=== PATIENT | male | born 1995 | race American Indian/Alaskan Native ===

== ENCOUNTER 2017-09-07 17:35 | Emergency (ER) | payer SELFPAY ==
[2017-09-07 20:30] LABS: Basophils % (Auto) 0.5 % (0.0-1.8); Hematocrit 45.8 % (35.5-45.6); Hemoglobin 15.5 gm/dl (11.8-15.2); Lymphocytes # (Auto) 0.6 K/mm3 (1.2-5.4); Lymphocytes % (Auto) 9.6 % (13.4-35.0); Mean Corpuscular HGB Conc 34 % (32-34); Mean Corpuscular Hemoglobin 28 pg (28-32); Mean Corpuscular Volume 82 fl (84-94); Monocytes # (Auto) 0.8 K/mm3 (0.0-0.8); Monocytes % (Auto) 13.7 % (0.0-7.3); Platelet Count 246 K/mm3 (140-440); Red Blood Count 5.62 M/mm3 (3.65-5.03); Red Cell Distribution Width 13.9 % (13.2-15.2)
[2017-09-07] MEDS ORDERED: NACL 0.9% 1000 ML 1,000 ML IV ONE (20:42)
[2017-09-07] MEDS ORDERED: MOTRIN PO ONE (20:43)
[2017-09-07 20:46] LABS: Lipase 21 units/L (13-60)
[2017-09-07 20:49] LABS: Alanine Aminotransferase 18 units/L (7-56); Albumin 4.3 g/dL (3.9-5); BUN/Creatinine Ratio 12; Blood Urea Nitrogen 13 mg/dL (9-20); Calcium 8.5 mg/dL (8.4-10.2); Hemolysis Index 16
[2017-09-07] MEDS ORDERED: NACL 0.9% 1000 ML 1,000 ML ONE (21:20)
--- NOTE | 2017-09-07 22:56 | Emergency Department Report ---
Vomiting/Diarrhea - HPI Duration: 3 Days Severity: moderate Nausea/Vomiting Severity: Mild Diarrhea Severity: None Pain Location: Generalized Pain Severity: Moderate Symptoms: Yes Watery Diarrhea (liquid diarrhea 2 days ago x 1, LBM, brown), Yes Fever, Yes Able to Tolerate Fluids, No Bloody diarrhea, No Recent Unusual Foods , No Recent Untreated Water, No Recent use of Antibiotics, No Family w/ Similar Symptoms, No Contacts w/ Similar Symptoms, No Rash, No Recent URI Symptoms Other History: 22 y.o. male presents with nausea, vomiting, LLQ abdominal pain, constipation, and nose bleeding with cough for 2 days. He started taking mucinex , theraflu, and dayquil for symptoms. He is having lower abdominal cramping, " it feel like I have to have a bowel movement". Denies sick contacts, chest pain , SOB, hematuria, diarrhea, and change in appetitie. <MANJULA FAGAN - Last Filed: 09/08/17 00:05> <INDIRA GARCIA - Last Filed: 09/08/17 06:57> - HPI Chief Complaint: Nausea/Vomiting/Diarrhea Stated Complaint: FLU SX/VOMITING Time Seen by Provider: 09/07/17 21:16 ED Review of Systems ROS: Stated complaint: FLU SX/VOMITING Other details as noted in HPI Constitutional: no symptoms reported, see HPI. denies: chills, diaphoresis, fever, malaise, weakness ENT: as per HPI. denies: ear pain, throat pain, dental pain, hearing loss, epistaxis, congestion Respiratory: no symptoms reported, see HPI, cough. denies: orthopnea, shortness of breath, SOB with exertion, SOB at rest, stridor, wheezing Cardiovascular: as per HPI. denies: chest pain, palpitations, dyspnea on exertion, orthopnea, edema, syncope, paroxysmal nocturnal dyspnea Gastrointestinal: as per HPI, abdominal pain (right lower abdominal), nausea, vomiting, diarrhea (once 2 days ago, brown), constipation. denies: hematemesis , melena, hematochezia Genitourinary: as per HPI. denies: urgency, dysuria, frequency, hematuria, discharge, testicular pain, testicular mass Neurological: as per HPI. denies: headache, weakness, numbness, paresthesias, confusion, abnormal gait, vertigo <MANJULA FAGAN - Last Filed: 09/08/17 00:05> ROS: Stated complaint: FLU SX/VOMITING Other details as noted in HPI <INDIRA GARCIA - Last Filed: 09/08/17 06:57> ED Past Medical Hx - Past Medical History Previous Medical History?: No Additional medical history: sickle cell trait - Surgical History Past Surgical History?: No - Social History Smoking Status: Current Every Day Smoker Substance Use Type: Alcohol, Marijuana <MANJULA FAGAN - Last Filed: 09/08/17 00:05> <INDIRA GARCIA - Last Filed: 09/08/17 06:57> - Medications Home Medications: Home Medications Medication Instructions Recorded Confirmed Last Taken Type Hydrocodone Bit/Acetaminophen 1 each PO Q8HR #15 tablet 07/20/13 Unknown Rx [Lortab 5-500 Tablet] Amoxicillin 500 mg PO BID #20 tablet 05/31/14 Unknown Rx Fluticasone [Flonase] 1 spray NS QDAY #1 bottle 05/31/14 Unknown Rx Ciprofloxacin HCl [Cipro] 500 mg PO BID 5 Days #10 tablet 09/07/17 Unknown Rx Ondansetron [Zofran TAB] 4 mg PO Q8HR PRN #20 tablet 09/07/17 Unknown Rx Vomiting Diarrhea Exam - Exam General: Vital signs noted. No distress. Alert and acting appropriately. HEENT: Yes Moist Mucous Membranes, No Pharyngeal Erythema, No Pharyngeal Exudates, No Rhinorrhea, No Conjuctival Injection, No Frontal Tenderness, No Maxillary Tenderness Neck: No Adenopathy, No Rigidity Lungs: Yes Clear Lung Sounds, Yes Good Air Exchange, No Wheezes, No Stridor, No Cough, No Nasal Flaring, No Retractions, No Use of Accessory Muscles Heart exam: Regular: Yes, Murmur: No, Tachycardia: No Abdomen: Tenderness: No, Peritoneal Signs: No, Distention: No, Hyperactive Bowel sounds: No Skin exam: Rash: No, Edema: No, Normal turgor: Yes Neurologic: Alert and oriented, no deficits. Musculoskeletal: Unremarkable. <MANJULA FAGAN - Last Filed: 09/08/17 00:05> - Exam General: Vital signs noted. No distress. Alert and acting appropriately. Neurologic: Alert and oriented, no deficits. Musculoskeletal: Unremarkable. <INDIRA GARCIA Last Filed: 09/08/17 06:57> ED Course Vital Signs 09/07/17 18:33 Temperature 102.7 F H Pulse Rate 104 H Respiratory 18 Rate Blood Pressure 131/83 Blood Pressure 131/83 [Right] O2 Sat by Pulse 98 Oximetry <JOSELYN FAGANA RAE - Last Filed: 09/08/17 00:05> Vital Signs 09/07/17 09/07/17 09/08/17 18:33 23:18 00:13 Temperature 102.7 F H 100.0 F H 99 F Pulse Rate 104 H 96 H 94 H Respiratory 18 18 18 Rate Blood Pressure 131/83 Blood Pressure 131/83 144/82 140/80 [Right] O2 Sat by Pulse 98 99 99 Oximetry <INDIRA GARCIA Mumtaz - Last Filed: 09/08/17 06:57> ED Medical Decision Making - Lab Data Result diagrams: 09/07/17 20:03 09/07/17 20:03 <MANJULA FAGANDILIP - Last Filed: 09/08/17 00:05> - Lab Data Result diagrams: 09/07/17 20:03 09/07/17 20:03 <JOSEINDIRA Pandya - Last Filed: 09/08/17 06:57> Critical care attestation.: If time is entered above; I have spent that time in minutes in the direct care of this critically ill patient, excluding procedure time. <MANJULA FAGANDILIP - Last Filed: 09/08/17 00:05> Critical care attestation.: If time is entered above; I have spent that time in minutes in the direct care of this critically ill patient, excluding procedure time. <INDIRA GARCIA Mumtaz - Last Filed: 09/08/17 06:57> ED Disposition Is pt being admited?: No Does the pt Need Aspirin: No Time of Disposition: 23:55 <MANJULA FAGANDILIP - Last Filed: 09/08/17 00:05> <INDIRA GARCIA Mumtaz - Last Filed: 09/08/17 06:57> Disposition: -01 TO HOME OR SELFCARE Condition: Stable Instructions: Constipation (ED), High Fiber Diet (ED), Gastroenteritis (ED), Acute Nausea and Vomiting (ED) Additional Instructions: Increase fluid intake. Take magnesium citrate or dulcolax for constipation evacuation. Increase fiber intake. Follow up with primary care provider in 3-5 days if symptoms are not improved. Prescriptions: Ciprofloxacin HCl [Cipro] 500 mg PO BID 5 Days #10 tablet Ondansetron [Zofran TAB] 4 mg PO Q8HR PRN #20 tablet PRN Reason: Nausea Referrals: RITU HERNANDEZ MD [Primary Care Provider] - 3-5 Days [facility] [Outside] - 3-5 Days [facility] [Outside] - 3-5 Days Forms: Work/School Release Form(ED) Print Language: DUTCH
[2017-09-08 00:14] VITALS: BP 140/80
== END 2017-09-08 00:13 | disposition home or self-care (01) ==
LOC: ED 17:35
DX: R11.2 Nausea with vomiting, unspecified (principal); R10.32 Left lower quadrant pain; F17.200 Nicotine dependence, unspecified, uncomplicated; F12.10 Cannabis abuse, uncomplicated
CPT/HCPCS: 36415; 80053; 82150; 83690; 85025; 96360; 99283; J7030

== ENCOUNTER 2018-12-17 00:28 | Emergency (ER) | payer SELFPAY ==
[2018-12-17] MEDS ORDERED: IBUPROFEN PO ONE ×2 (00:58→01:02)
--- NOTE | 2018-12-17 01:48 | XRay Report ---
PROCEDURE: XR FOOT 2V LT TECHNIQUE: AP and lateral views of the left foot were obtained. HISTORY: Left 5th toe pain COMPARISONS: None FINDINGS: There is a deformity in the mid shaft of the proximal phalanx of the fifth toe. A discrete fracture l ine is not seen. This may be a chronic injury. There are no additional skeletal or soft tissue abnorm alities. IMPRESSION: Cortical deformity in the mid shaft of the proximal phalanx of fifth toe as described. A discrete fra cture line is not seen. This may be a chronic injury. Coned-down imaging of the fifth toe is recommen ded including an oblique view for further evaluation.. This document is electronically signed by Bernardo Seaman MD., December 17 2018 01:46:12 AM ET
[2018-12-17] MEDS ORDERED: NORCO 10/325 PO ONE (01:58)
[2018-12-17] MEDS ORDERED: BOOSTRIX IM ONE (01:58)
[2018-12-17] MEDS ORDERED: ANCEF IM ONE (01:58)
--- NOTE | 2018-12-17 01:59 | Emergency Department Report ---
ED Lower Extremity HPI - General Chief Complaint: Extremity Injury, Lower Stated Complaint: TOE INJURY Time Seen by Provider: 12/17/18 01:54 Source: patient Mode of arrival: Ambulatory Limitations: No Limitations - History of Present Illness Initial Comments: She has a 23-year-old male who comes into the ER after stubbing his fifth toe on the wall. He has a laceration to the bottom of his foot. However, he is ambulatory. Bleeding is controlled. -: Sudden Injury: Foot: Left Place: home Severity: mild Context: direct blow - Related Data Previous Rx's Medication Instructions Recorded Last Taken Type cephALEXin [Keflex] 500 mg PO Q12HR #20 cap 12/17/18 Unknown Rx traMADol [Ultram] 50 mg PO Q6HR PRN #10 tablet 12/17/18 Unknown Rx Allergies Allergy/AdvReac Type Severity Reaction Status Date / Time No Known Allergies Allergy Verified 05/31/14 14:04 ED Review of Systems ROS: Stated complaint: TOE INJURY Other details as noted in HPI Comment: All other systems reviewed and negative ED Past Medical Hx - Past Medical History Previous Medical History?: Yes Additional medical history: sickle cell trait - Surgical History Past Surgical History?: No - Family History Family history: no significant - Social History Smoking Status: Current Every Day Smoker Substance Use Type: None - Medications Home Medications: Home Medications Medication Instructions Recorded Confirmed Last Taken Type cephALEXin [Keflex] 500 mg PO Q12HR #20 cap 12/17/18 Unknown Rx traMADol [Ultram] 50 mg PO Q6HR PRN #10 tablet 12/17/18 Unknown Rx ED Physical Exam - General Limitations: No Limitations General appearance: alert - Head Head exam: Present: atraumatic, normocephalic - Eye Eye exam: Present: normal appearance, PERRL - ENT ENT exam: Present: mucous membranes moist - Neck Neck exam: Present: normal inspection - Respiratory Respiratory exam: Present: normal lung sounds bilaterally - Cardiovascular Cardiovascular Exam: Present: regular rate - GI/Abdominal GI/Abdominal exam: Present: soft, normal bowel sounds - Rectal Rectal exam: Present: deferred - Extremities Exam Extremities exam: Present: normal inspection, full ROM - Back Exam Back exam: Present: normal inspection, full ROM - Neurological Exam Neurological exam: Present: alert, oriented X3 - Skin Skin exam: Present: warm, dry, other (LACERATION TO THE BOTTOM OF THE FOOT BETWEEN THE /5 DIGIT.) ED Course Vital Signs 12/17/18 12/17/18 12/17/18 00:36 00:52 02:58 Temperature 99.1 F 99.1 F Pulse Rate 68 64 Respiratory 18 18 20 Rate Blood Pressure 152/91 152/91 O2 Sat by Pulse 100 99 Oximetry - Reevaluation(s) Reevaluation #1: 12/17/18 04:37 WOUND CARE PROVIDED BY PROVIDER - Laceration /Wound Repair FOOT Wound Location: lower extremity Wound Length (cm): 2 Wound's Depth, Shape: superficial Wound Explored: clean Irrigated w/ Saline (ccs): 50 Betadine Prep?: Yes Wound Debrided: minimal Wound Repaired With: Steri-strips, Dermabond Layer Closure?: No Sterile Dressing Applied?: Yes Progress: TOLERATED WELL ED Lower Extremity MDM - Radiology Data Radiology results: report reviewed, image reviewed - Medical Decision Making XRAY NOTED PROVIDER CLEANED WOUND PROVIDER REPAIRED WOUND MEDICATED WITH ANCEF AND TDAP DC HOME WITH DC PLAN OF CARE ORTHO SHOE/CRUTCHES Vital Signs 12/17/18 12/17/18 12/17/18 00:36 00:52 02:58 Temperature 99.1 F 99.1 F Pulse Rate 68 64 Respiratory 18 18 20 Rate Blood Pressure 152/91 152/91 O2 Sat by Pulse 100 99 Oximetry Critical care attestation.: If time is entered above; I have spent that time in minutes in the direct care of this critically ill patient, excluding procedure time. ED Disposition Clinical Impression: Laceration, Fracture, toe, Contusion Disposition: DC-01 TO HOME OR SELFCARE Is pt being admited?: No Does the pt Need Aspirin: No Condition: Stable Instructions: Toe Fracture (ED) Additional Instructions: ICE REST ELEVATE ORTHO SHOE TO PREVENT YOUR TOE FROM BENDING CRUTCHES FOR SAME REASON TYLENOL AND MOTRIN FOR MILD PAIN MED ORDERED TONIGHT TAKE BULKY DRESSING DOWN EVERY 12 HOURS PAT WITH SOAP AND WATER THEN COVER BACK WITH GUAZE AND WRAP NO OINTMENTS ALLOW INTERNAL DRESSING TO FALL OFF KEEP JOVANNI TAPE ON TOES FOLLOW UP PCP IF PROBLEMS OCCUR REFERRAL BELOW Prescriptions: cephALEXin [Keflex] 500 mg PO Q12HR #20 cap traMADol [Ultram] 50 mg PO Q6HR PRN #10 tablet PRN Reason: Pain Referrals: [facility] [Outside] - 3-5 Days Forms: Work/School Release Form Time of Disposition: 04:29
[2018-12-17] MEDS ORDERED: WATER FOR INJ Sterile (PF) 10 ML ONE (03:18)
[2018-12-18 18:06] VITALS: BP 139/82
== END 2018-12-17 06:22 | disposition home or self-care (01) ==
LOC: ED 00:28
DX: S92.502A Displaced unspecified fracture of left lesser toe(s), initial encounter for closed fracture (principal); S91.115A Laceration without foreign body of left lesser toe(s) without damage to nail, initial encounter; S90.32XA Contusion of left foot, initial encounter; W22.8XXA Striking against or struck by other objects, initial encounter; Y93.89 Activity, other specified; Y92.89 Other specified places as the place of occurrence of the external cause; Y99.8 Other external cause status
CPT/HCPCS: 12001; 73620; 90471; 90715; 96372; 99284; J0690

== ENCOUNTER 2021-09-09 10:29 | Emergency (ER) | payer SELFPAY ==
--- NOTE | 2021-09-09 11:08 | Emergency Department Report ---
- General Chief Complaint: Chest Pain Stated Complaint: CHEST PAIN Time Seen by Provider: 09/09/21 10:38 Source: patient Mode of arrival: Ambulatory Limitations: No Limitations - History of Present Illness Initial Comments: Patient is a 26-year-old male presents emergency room complaints of URI symptoms that began 6 days ago. He has associated vomiting, diarrhea, chills, general ized body aches, cough. He reports that he has chest pain with coughing. He denies any fever, hemoptysis, leg swelling, calf pain, shortness of breath. Patient reports multiple people at his job tested positive for COVID-19. He reports that his girlfriend also has similar symptoms. He has not been vaccinated for COVID-19. He has not been tested for COVID-19 since becoming sick. No past medical history. No allergies to medications. Patient is a smoker. - Related Data Previous Rx's Medication Instructions Recorded Last Taken Type cephALEXin [Keflex] 500 mg PO Q12HR #20 cap 12/17/18 Unknown Rx traMADoL [Ultram] 50 mg PO Q6HR PRN #10 tablet 12/17/18 Unknown Rx Benzonatate [Tessalon Perles] 100 mg PO Q8HR PRN #12 cap 09/09/21 Unknown Rx Naproxen 375 mg PO BID PRN #14 09/09/21 Unknown Rx guaiFENesin ER [Mucinex ER] 600 mg PO Q12H #14 09/09/21 Unknown Rx Allergies Allergy/AdvReac Type Severity Reaction Status Date / Time No Known Allergies Allergy Verified 09/09/21 10:31 ED Review of Systems ROS: Stated complaint: CHEST PAIN Other details as noted in HPI Comment: All other systems reviewed and negative ED Past Medical Hx - Past Medical History Previous Medical History?: Yes Additional medical history: sickle cell trait - Surgical History Past Surgical History?: No - Social History Substance Use Type: Alcohol, Marijuana - Medications Home Medications: Home Medications Medication Instructions Recorded Confirmed Last Taken Type cephALEXin [Keflex] 500 mg PO Q12HR #20 cap 12/17/18 Unknown Rx traMADoL [Ultram] 50 mg PO Q6HR PRN #10 tablet 12/17/18 Unknown Rx Benzonatate [Tessalon Perles] 100 mg PO Q8HR PRN #12 cap 09/09/21 Unknown Rx Naproxen 375 mg PO BID PRN #14 09/09/21 Unknown Rx guaiFENesin ER [Mucinex ER] 600 mg PO Q12H #14 09/09/21 Unknown Rx ED Physical Exam - General Limitations: No Limitations General appearance: alert, in no apparent distress - Head Head exam: Present: atraumatic, normocephalic - Eye Eye exam: Present: normal appearance - ENT ENT exam: Present: mucous membranes moist - Respiratory Respiratory exam: Present: normal lung sounds bilaterally. Absent: respiratory distress, wheezes, rales, rhonchi, stridor, chest wall tenderness, accessory muscle use, decreased breath sounds, prolonged expiratory - Cardiovascular Cardiovascular Exam: Present: regular rate, normal rhythm, normal heart sounds. Absent: systolic murmur, diastolic murmur, rubs, gallop - Neurological Exam Neurological exam: Present: alert, oriented X3 - Psychiatric Psychiatric exam: Present: normal affect, normal mood - Skin Skin exam: Present: warm, dry, intact ED Course Vital Signs 09/09/21 10:36 Temperature 98.9 F Pulse Rate 80 Respiratory 18 Rate Blood Pressure 131/70 O2 Sat by Pulse 96 Oximetry ED Medical Decision Making - Radiology Data Radiology results: report reviewed Ordering Physician: SMITH BABIN Date of Service: 09/09/21 Procedure(s): XR chest routine 2V Accession Number(s): [id number] cc: SMITH BABIN Fluoro Time In Minutes: CHEST 2 VIEWS INDICATION: cough. COMPARISON: none FINDINGS: Support devices: None. Heart: Within normal limits. Lungs/pleura: No acute air space or interstitial disease. No pneumothorax. Additional findings: Thoracolumbar scoliosis IMPRESSION: No acute findings. Signer Name: Jason Dee Jr, MD Signed: 09/09/2021 11:09 AM Workstation Name: [id number] Transcribed By: TTR Dictated By: JASON DEE JR, MD Electronically Authenticated By: JASON DEE JR, MD Signed Date/Time: 09/09/211108 DD/ 08 TD/TT: - Medical Decision Making Patient is a 26-year-old male presents emergency room complaints of URI symptoms that began 6 days ago. He has associated vomiting, diarrhea, chills, generalized body aches, cough. He reports that he has chest pain with coughing. He denies any fever, hemoptysis, leg swelling, calf pain, shortness of breath. Patient reports multiple people at his job tested positive for COVID-19. He reports that his girlfriend also has similar symptoms. He has not been vaccinated for COVID-19. He has not been tested for COVID-19 since becoming sick. No past medical history. No allergies to medications. Patient is a smoker. Vitals are normal, no fever, no tachycardia, no hypoxia. Breath sounds are clear bilaterally, no wheezing, no rales, no rhonchi. Chest x-ray with no acute process. Symptoms likely related to URI. Discussed supportive care and symptomatic treatment with patient and the importance of oral hydration. Advised patient please take medication as prescribed. Increase your fluid intake. Follow-up with your primary care doctor for reexamination. Return to emergency room for any new or worsening symptoms. Recommend outpatient COVID-19 testing and if positive you need 5 days of self quarantine and 5 days of strict mask wearing according to the CDC guidelines. Critical care attestation.: If time is entered above; I have spent that time in minutes in the direct care of this critically ill patient, excluding procedure time. ED Disposition Clinical Impression: URI (upper respiratory infection) Qualifiers: URI type: unspecified URI Qualified Code(s): J06.9 - Acute upper respiratory infection, unspecified Disposition: 01 HOME / SELF CARE / HOMELESS Is pt being admited?: No Does the pt Need Aspirin: No Condition: Stable Instructions: Viral Respiratory Infection Additional Instructions: please take medication as prescribed. Increase your fluid intake. Follow-up with your primary care doctor for reexamination. Return to emergency room for any new or worsening symptoms. Recommend outpatient COVID-19 testing and if positive you need 5 days of self quarantine and 5 days of strict mask wearing according to the CDC guidelines. Prescriptions: guaiFENesin ER [Mucinex ER] 600 mg PO Q12H #14 Naproxen 375 mg PO BID PRN #14 PRN Reason: pain Benzonatate [Tessalon Perles] 100 mg PO Q8HR PRN #12 cap PRN Reason: cough Referrals: ROHAN EWING MD [Staff Physician] - 3-5 Days [facility] [Provider Group] - 3-5 Days Time of Disposition: 11:17 Print Language: BULGARIAN
--- NOTE | 2021-09-09 11:14 | XRay Report ---
CHEST 2 VIEWS INDICATION: cough. COMPARISON: none FINDINGS: Support devices: None. Heart: Within normal limits. Lungs/pleura: No acute air space or interstitial disease. No pneumothorax. Additional findings: Thoracolumbar scoliosis IMPRESSION: No acute findings. Signer Name: Jason Dee Jr, MD Signed: 09/09/2021 11:09 AM Workstation Name: [id number]
[2021-09-09 11:50] VITALS: BP 135/75
== END 2021-09-09 11:44 | disposition home or self-care (01) ==
LOC: ED 10:29
DX: J06.9 Acute upper respiratory infection, unspecified (principal); F10.20 Alcohol dependence, uncomplicated; F12.90 Cannabis use, unspecified, uncomplicated
CPT/HCPCS: 71046; 99283